=== PATIENT | male | born 1985 | race Caucasian/White ===

== ENCOUNTER 2022-03-20 14:16 | Outpatient (REF) | payer MEDICAID, SELFPAY ==
[2022-03-22 10:22] LABS: COVID-19 RT-PCR UVMMC Result Negative (Negative)
== END 2022-03-20 14:17 | disposition home or self-care (01) ==
LOC: LBN 14:16
PROVIDERS: Visit Provider Physician Assistant Medical
DX: Z20.822 Contact with and (suspected) exposure to COVID-19 (principal)
CPT/HCPCS: U0003

== ENCOUNTER 2022-08-23 08:24 | Emergency (ER) | payer MEDICAID, SELFPAY ==
[2022-08-23 08:29] VITALS: BP 156/109; PULSE 84; RESP 18; TEMP 36.7; O2SAT 98
--- NOTE | 2022-08-23 08:44 | ED.GENADUL_ITS ---
Discharge Plan Disposition Patient Disposition: Home Discharge Details Clinical Impression: Acute dehydration, Gastroenteritis Primary Care Provider: Mateusz Potts ED Provider: Ganesh Phelan Home Meds and New Rx's Prescriptions: Continued gabapentin 100 mg capsule 100 mg PO DAILY Patient Comments: stopped taking omeprazole 20 mg tablet,delayed release (DR/EC) 20 mg PO DAILY sertraline 50 mg tablet 50 mg PO DAILY Patient Comments: not taking ascorbic acid (vitamin C) 1,000 mg capsule 1 g PO PRN cholecalciferol (vitamin D3) 1,250 mcg (50,000 unit) capsule 1,250 mcg PO QWEEK Discharge Instructions Instructions: Gastroenteritis (ED), Dehydration (ED) Additional Instructions: We will ask our care managers to refer you to general surgery as an outpatient for follow-up of your previous esophageal stricture. Home to rest today. Small, frequent sips of fluids to maintain hydration. You may use the provided ondansetron if needed for further nausea. Consider restarting your sertraline in conjunction with your prescriber. Resume normal routine and activities. May slowly advance a bland diet as tolerated today. Medical Decision Making This is a 37-year-old male with a history of GERD, esophageal strictures requiring dilatation, and longstanding anxiety and mild mood disorder. He presents with 2 days of nausea, vomiting, loose and watery stools. Denies any known suspicious food or ill contacts. He has not had blood in the emesis or stool. He admits to some anxiety regarding recurrent esophageal stricture. Patient slightly dehydrated in appearance, his exam is otherwise reassuring. Differential diagnosis includes gastroenteritis, dehydration, electrolyte abno rmalities. IV access established, patient given antiemetic, anxiolytic, fluids. He is referred for screening x-ray to rule out obstruction. Laboratories are reassuring. X-ray reveals stool in the right colon, no dilated bowel. Following medications and stool, the patient is improving. Able to tolerate liquids by mouth. [place] better and able to produce urine. Patient is improving. This most consistent with gastroenteritis. Given the history of esophageal stricture, I do feel is reasonable to place a referral to surgery as the patient states its been a couple of years since he was last seen and he questions whether the passage of solid foods has been more difficult. Lab Data Lab results reviewed: Yes I reviewed the patient's lab results. Labs: Laboratory Results - last 24 hr 08/23/22 08/23/22 08:50 08:50 WBC 8.94 RBC 4.49 Hgb 14.6 Hct 42.5 MCV 95 MCH 32.5 MCHC 34.4 RDW 12.7 Plt Count 223 MPV 8.9 Immature Gran % 0.2 Neutrophils % 70.8 Lymphocytes % 18.6 Monocytes % 8.4 Eosinophils % 1.7 Basophils % 0.3 Nucleated RBC % 0.0 Absolute Neutrophils 6.33 Absolute Lymphocytes 1.66 Absolute Monocytes 0.75 Absolute Eosinophils 0.15 Absolute Basophils 0.03 Sodium 143 Potassium 4.0 Chloride 106 Carbon Dioxide 29.4 Anion Gap 7.6 BUN 12 Creatinine 0.9 Est GFR (CKD-EPI 2020) 112.81 Glucose 111 H Calcium 8.8 Total Bilirubin 0.6 AST 21 ALT 33 Alkaline Phosphatase 56 Total Protein 7.0 Albumin 3.4 Lipase 40 HPI General Mode of arrival: ambulatory . Date/Time Provider Initiated Documentation: 08/23/22 08:27 . Limitations to Documentation: no limitations . Information obtained by: patient . History of Present Illness 37 year old M presents to the emergency department with the chief complaint of Nausea, vomiting, diarrhea for 2 days, described as mild and moderate, and is localized to the abdomen. Patient reports no radiation. Patient started experiencing this day(s) and it has been intermittent. No relieving factors improve symptom(s), Eating worsens symptoms . Patient notes loss of appetite and nausea/vomiting; denies syncope and weakness. Patient did receive the following treatments prior to arrival, none Related Data Home Medications Medication Instructions Recorded Confirmed ascorbic acid (vitamin C) 1,000 mg 1 g PO PRN 07/29/22 08/23/22 capsule cholecalciferol (vitamin D3) 1,250 1,250 mcg PO QWEEK 07/29/22 08/23/22 mcg (50,000 unit) capsule gabapentin 100 mg capsule 100 mg PO DAILY 07/29/22 omeprazole 20 mg tablet,delayed 20 mg PO DAILY 07/29/22 08/23/22 release sertraline 50 mg tablet 50 mg PO DAILY 07/29/22 Allergies Allergy/AdvReac Type Severity Reaction Status Date / Time Penicillins Allergy Unknown Unverified 08/23/22 08:32 General Stated Complaint: Nausea/Vomit/Diar LEXUS: 3 Review of Systems Narrative: Recently stopped taking sertraline. Had chills at home, no documented fever. No known sick contacts or suspicious food contacts. 8 systems reviewed and otherwise negative. Positive anxiety. PFSH All Active Problems (Updated 08/23/22 @ 10:24 by Ganesh Phelan MD) Acute dehydration (Acute) Gastroenteritis (Acute) Thyroid nodule (Acute) Neck pain (Acute) GERD (gastroesophageal reflux disease) (Chronic) Generalized pain (Acute) Digestive problems (Acute) Difficulty swallowing (Acute) Back pain (Acute) Medical History 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 Surgical History History of hand surgery Hx of esophagogastroduodenoscopy Family History Mother Alcohol use disorder Substance use disorder Sister Alcohol use disorder Substance use disorder Social History Smoking/Tobacco Use Status: Current every day Tobacco Type: e-cigarettes Tobacco: How many years used: 20 Quit status: considering quitting Second Hand Exposure: Yes Smoking risk assessment performed?: Yes Alcohol Intake: current Alcohol Intake frequency: a few times a week Alcohol type: hard liquor Drug use: Daily Substance use type: marijuana Caregiver/Support person: No Household members: none Communication Needs: None Do you need help understanding health information?: Never Pets and animals: No Do you think of yourself as: straight/heterosexual Current gender identity: male What is your relationship status?: How often do you talk on the phone with friends or family?: never How often do you get together with friends or relatives?: never How often do you attend amish or tenriism services?: decline to answer Do you belong to any clubs or organized social groups?: no Panel score (0-1 are the most socially isolated patients): 0 What type of physical activity do you participate in: none Frequency: does not exercise Carmen/Confucianist: No preference Special carmen needs: No Seatbelt use: always Helmet use: Yes Helmet use: always Drive intox or ride w/intox regional owner operator truck driver: No Do you feel safe at home: Yes Do you feel safe in your relationship?: Yes Exam Narrative Exam Narrative: GEN: awake, alert, oriented 3. Pleasant, well groomed, interactive. HEAD: Normocephalic, atraumatic ENT: Mucous membranes dry, oropharynx unremarkable, External ear exam unremarkable EYES: PERRL, EOMI NECK: Full ROM, no JOSETTE, no menigismus CHEST/RESP: Nontender, clear to auscultation bilateral, no wheeze/rhonchi/rales CARDIOVASCULAR: RRR, no murmur, rub jens. 2+ Rad pulse bilateral ABDOMEN: Soft, nontender, no mass. +Bowel sounds EXT: Full ROM, no edema, no rash Neuro: Grossly normal neurologic exam, conversant, interactive. Psych: Speech fluent, thoughts congruent, affect anxious Course Vital Signs Vital signs: Vital Signs Temperature 36.7 C 08/23/22 08:29 Pulse 84 08/23/22 08:29 Respiratory Rate 18 08/23/22 08:29 Blood Pressure 156/109 H 08/23/22 08:29 Pulse Oximetry 98 08/23/22 08:29 Temperature 36.7 C 08/23/22 08:29 Temperature Source Oral 08/23/22 08:29 Pulse 84 08/23/22 08:29 Respiratory Rate 18 08/23/22 08:29 Respiratory Effort Normal 08/23/22 08:33 Blood Pressure 156/109 H 08/23/22 08:29 Blood Pressure Position Sitting 08/23/22 08:29 Pulse Oximetry 98 08/23/22 08:29 Oxygen Delivery Method Room Air 08/23/22 08:29 Oxygen Flow Rate 0 08/23/22 08:29 Pain Level 0 08/23/22 08:29 PAWSS Have you Been Recently Intoxicated or Drunk Within the Last 30 days?: Yes Have you Ever Experienced Previous Episodes of Alcohol Withdrawal?: No Have you ever Experienced Withdrawal Seizures?: No Have you ever Experienced Delirium Tremens(DT)s?: No Have you ever undergone Alcohol Rehabilitation Treatment (i.e, inpt ot outpatient treatment programs)?: No Have you ever Experienced Blackouts?: Yes Have you ever Combined Alcohol with other Downers within the last 90 days?: Yes Have you ever Combined Alcohol with any other Substance of Abuse during the last 90 days?: No Positive Blood Alcohol level on Presentation? [PCS.BAL]: No Evidence of Increased Autonomic Activity (i.e. HR>120, tremor, sweating, agitation, nausea)?: No Result: 2
[2022-08-23 09:00] LABS: Abs Immature Grans 0.02 10^3/uL (0.0-0.06); Absolute Basophil Count 0.03 10^3/uL (0.0-0.2); Absolute Eosinophil Count 0.15 10^3/uL (0.0-0.7); Absolute Lymphocyte Count 1.66 10^3/uL (1.2-3.4); Absolute Monocyte Count 0.75 10^3/uL (0.1-0.8); Absolute Neutrophil Count 6.33 10^3/uL (1.2-6.7); Basophils % 0.3; Eosinophils % 1.7; HCT 42.5 % (40.0-50.0); HGB 14.6 g/dL (13.5-17.5); Immature Grans % 0.2; Lymphocytes % 18.6; MCH 32.5 pg (27.0-33.0); MCHC 34.4 % (32.0-36.0); MCV 95 fL (80-95); MPV 8.9 fL (8.0-11.0); Monocytes % 8.4; Neutrophils % 70.8; Platelet Count 223 10^3/uL (130-400); RBC 4.49 10^6/uL (4.36-5.78); RDW 12.7 % (11.8-14.1); RDW-SD 43.9 fL; WBC 8.94 10^3/uL (4.4-10.8)
[2022-08-23] MEDS: Ondansetron 4 MG/2 ML VIAL IVP (09:04)
[2022-08-23] MEDS: LORazepam 2 MG/ML VIAL 0.5 MG IVP (09:05)
[2022-08-23] MEDS: Normal Saline 1,000 ML 1000 ML IV (09:06)
--- NOTE | 2022-08-23 09:07 | DI.RAD_ITS ---
Exam(s) XR ABDOMEN FLAT UPRIGHT EXAM: 2D digital imaging was performed. CLINICAL HISTORY: vomiting, diarrhea. COMPARISON: No exams were available for comparison TECHNIQUE: Supine and uprightSupine and Lateral views of the abdomen were performed. FINDINGS: BOWEL GAS PATTERN: Stool in right side of the colon and rectum. Small bowel and stomach nondistended .No free air. CALCIFICATIONS: No urinary tract calcifications. OSSEOUS STRUCTURES: Normal for age. Visualized portions of chest: Unremarkable. IMPRESSION: 1. Nonobstructive bowel gas pattern. 2. No radiopaque calculi. 3. No free air. DATA REPOSITORY: RADIATION DOSE DELIVERED:
[2022-08-23 09:14] LABS: ALT 33 U/L (16-63); AST 21 U/L (15-37); Albumin 3.4 g/dL (3.4-5.0); Alkaline Phosphatase 56 U/L (46-116); Anion Gap 7.6 mmol/L (3-11); BUN 12 mg/dL (7-18); Bilirubin, Total 0.6 mg/dL (0.2-1.0); CO2 29.4 mmol/L (21.0-32.0); CREATININE 0.9 mg/dL (0.70-1.30); Calcium 8.8 mg/dL (8.5-10.1); Chloride 106 mmol/L (98-107); Estimated GFR 112.81 (mL/min/1.73m2); Glucose 111 mg/dL (74-106); Lipase 40 U/L (16-77); Sodium 143 mmol/L (136-145)
--- NOTE | 2022-08-23 09:38 | DI.VRAD_ITS ---
PROCEDURE INFORMATION: Exam: XR Abdomen Exam date and time: 08/23/2022 9:19 AM Age: 37 years old Clinical indication: Other: Vomitting, diarrhea TECHNIQUE: Imaging protocol: Radiologic exam of the abdomen. Views: 2 Views. Upright and supine views. COMPARISON: No relevant prior studies available. FINDINGS: Gastrointestinal tract: Constipation in the right colon. No dilated bowel.. Intraperitoneal space: Normal. No free air. Bones/joints: Unremarkable for age. IMPRESSION: 1. Constipation in the right colon. 2. No dilated bowel.. Dictated and Authenticated by: Charity Campbell MD. Ordering:BLAKE Andersen MD
--- NOTE | 2022-08-23 10:33 | NUR.NOTE ---
Per Dr. Phelan, referral to Surgery for esophageal stricture as soon as avail. Put the referral in the care manger's box for follow up assistance.Nursing Note:
[2022-08-23 10:50] LABS: Bilirubin Negative (Negative); Blood Negative (Negative); Clarity Cloudy (Clear); Glucose Negative (Negative); Ketones Negative (Negative); Leukocyte Esterase Negative (Negative); Nitrite Negative (Negative); Urobilinogen 0.2 mg/dL (Up to 0.2); pH 8.5 (5-8)
[2022-08-23 11:05] VITALS: BP 147/94; PULSE 85; RESP 18; TEMP 36.6; O2SAT 97
== END 2022-08-23 11:19 | disposition home or self-care (01) ==
PROVIDERS: Emergency Provider Emergency Medicine; PCP Nurse Practitioner Family
DX: K52.9 Noninfective gastroenteritis and colitis, unspecified (principal); E86.0 Dehydration
CPT/HCPCS: 80053; 83690; 96361; 96374; 96375; 99284; 74019; 81003; 85025; J2060; J2405

== ENCOUNTER 2022-08-26 10:39 | Day surgery (SDC) | payer MEDICAID, SELFPAY ==
--- NOTE | 2022-08-26 06:42 | ENDO_ITS ---
Date of service: 08/26/22 Time of Service: 12:37 Endoscopy Report DATE OF PROCEDURE: 08/26/22 PRE-OP DIAGNOSIS: Dysphagia and Hx of Hoang's POST-OP DIAGNOSIS: same (esophagitis and scarring) PROCEDURE: EGD with biopsies Balloon dilatation of esophageal stricture SURGEON: Sheila Velez ANESTHESIA TYPE: MAC ESTIMATED BLOOD LOSS: 5 PATHOLOGY: other (bx of GE junction and stomach) COMPLICATIONS: None DISPOSITION: same day INDICATIONS: 37-year-old male with a history of dysphagia, gastroesophageal reflux disease and Hoang's esophagitis.? His last EGD was in October 2020.? He feels like food is getting stuck again and sometimes he has to throw up.? He denies any hematemesis or weight loss.? The EGD procedure with biopsies were gross reviewed with him as well as balloon dilation if needed.? Risks, benefits and compl ications have been reviewed. Complications include but are not limited to bleeding, pain, perforation, sore throat, aspiration, and adverse reaction to the medications.? Questions were entertained and answered to their satisfaction and they wished to proceed. No guarantees were given or implied. FINDINGS: severe inflammation and narrowing of the esophagus. PROCEDURE DESCRIPTION: After informed consent was obtained the patient was take to the procedure room and placed in a supine position. Monitors were applied and a time out was done. The patients name, date of , procedure type, allergies to medications and metal in their body was reviewed. A bite block was placed and the patient was sedated. Once sedated and comfortable the gastroscope was advanced through the oropharynx which was grossly normal into the esophagus. The proximal and mid- esophagus were normal. In the distal esophagus there was severe inflammation and scarring. I was able to gently get the scope to get past the scarring into the stomach. The scope was advanced into the stomach and through the pylorus into the 3rd portion of the duodenum. The duodenum was noted to be normal. The scope was retracted back into the stomach and biopsies were done to rule out H. pylori. There were no ulcers. The scope was retroflexed. The cardia and fundus were noted to be normal. There was a 3-4 cm hiatal hernia noted. The scope was retracted back into the esophagus and biopsies were done of the GE junction to rule out Hoang's. The Z line was irregular. The GE junction was at 32 cm. I attempted to dilate the GE junction, but the patient started to cough pretty violently so the procedure was stopped. The scope was removed and the patient was woken up and taken back to [facility] in stable condition. Follow up: 2 week in the office. Will probably need another EGD in 3 months
--- NOTE | 2022-08-26 06:43 | W.PM.DSUDISC ---
Date of service: 08/26/22 Time of Service: 12:34 Discharge Plan Disposition Patient Disposition: Home Condition: Stable Discharge Details Reason For Visit: Dysphagia and Hoang's Attending Provider: Sheila Velez Primary Care Provider: Mateusz Potts Home Meds and New Rx's Prescriptions: New omeprazole 40 mg capsule,delayed release(DR/EC) 40 mg PO BID Qty: 60 2RF Continued ascorbic acid (vitamin C) 1,000 mg capsule 1 g PO PRN cholecalciferol (vitamin D3) 1,250 mcg (50,000 unit) capsule 1,250 mcg PO QWEEK Discontinued omeprazole 40 mg capsule,delayed release(DR/EC) 40 mg PO DAILY Qty: 90 0RF Discharge Instructions Instructions: Diet for Stomach Ulcers and Gastritis (ED), GERD (Gastroesophageal Reflux Disease) (DC), Esophagitis (DC) Additional Instructions: Findings: 1. mild inflammation in the stomach 2. Severe inflammation in the esophagus with scarring 3. Small Hiatal hernia Follow up: 2 weeks Medications: Please increase the Omeprazole to 40 mg 2 x a day. A new Rx has been sent in Please call if you develop: fevers >101.5 Nausea or Vomiting Abdominal pain that is not transient Rectal bleeding that is more then a tbsp A hard abdomen and inability to pass gas DAY SURGERY UNIT POST ENDOSCOPY INSTRUCTIONS Instructions for everyone who is given Anesthesia: For your safety, please do the following for the next 24 Hours: a. Do not drive or operate dangerous equipment b. Do not drink alcohol beverages or use any recreational drugs for the first 24 hours or while taking pain medications. The medications in your body may have a reaction that can be dangerous. c. Do not make any important decisions or sign any important papers 1. Generally there are no restrictions on your activity after a day or so has gone by, but you may feel a bit fatigued for a few days. 2. After you arrive home you may have a light meal and return to a normal diet as you can tolerate it without feeling sick to your stomach. 3. After surgery, you may feel pain or discomfort. This should be only transient, but if it persists please contact your doctor. 4. If there are any questions regarding the findings of your procedure, please feel free to contact your doctor. 6. If you are unable to contact your doctor with a problem, contact the hospital at [phone]. 4. Continue all your regular medications unless directed otherwise. I understand the above instructions and have no questions. Signature of Patient or Responsible Adult Escort Date/Time Name of Responsible Adult Escort Signature of Nurse Date/Time Activity:: Activity as Tolerated Diet:: low acid Discharge Orders Discharge Orders: Discharge Order (Routine); Ordered 08/26/22 Ordered By: Sheila Velez DS: Diagnosis Discharge Diagnosis (1) Hoang's esophagus determined by endoscopy: Status: Acute (2) GERD (gastroesophageal reflux disease): Status: Chronic (3) Hiatal hernia: Status: Chronic
[2022-08-26 11:01] VITALS: BP 124/89; PULSE 73; RESP 16; TEMP 36.3; O2SAT 97
[2022-08-26] MEDS: Lactated Ringers 1,000 ML 80 ML IV (11:28)
--- NOTE | 2022-08-26 12:20 | STOM_PTH ---
PATIENT: Neto Gallegos LOC: [facility] U#:[id number] AGE/SX: 37/M ROOM: RE08/26/[address]: Sheila Velez MD : 1985 BED: DIS: 08/26/2022 SPEC #: [id number] RECD: 08/26/22 17:31 STATUS: MARILEE REQ #: [id number] KYLER: 08/26/22 12:[address]: Sheila Velez DEPT: Surgical Specimen RECD BY: Tram Allen ENTERED: 08/26/22 17:32 SP TYPE: STOMACH OTHR DR: Mateusz Encinas, MARLENI Tissues: 1 - STOMACH BIOPSY 2 - ESOPHAGUS BIOPSY Procedures: GROSS AND MICRO LEVEL 4 Comments: [id number]
[2022-08-26 12:38] VITALS: BP 131/87; PULSE 80; RESP 16; TEMP 36.6; O2SAT 94
--- NOTE | 2022-08-26 12:44 | ANES.PREOP_ITS ---
General Info Date of Service Date Performed: 08/26/22 Height: 5 ft 7 in Weight: 84 kg Body Mass Index (BMI): 29.0 Surgical Procedure: Operation Date: 08/26/22 12:05 Proposed Procedure Side Surgeon p Gastroscopy with Possible Dilation Sheila Velez MD Actual Procedure Side Surgeon p EGD WITH BIOPSIES Not Applicable Sheila Velez MD Pre-Op Diagnosis Post-Op Diagnosis DIFFICULTY SWALLOWING GASTRITIS AND SEVERE ESOPHAGITIS WITH SCRITCTURE Meds Allergies and Home Medications Allergies Allergy/AdvReac Type Severity Reaction Status Date / Time Penicillins Allergy Severe Anaphylaxis Unverified 08/25/22 15:45 Home Medication Medication Instructions Recorded ascorbic acid (vitamin C) 1,000 mg 1 g PO PRN 07/29/22 capsule cholecalciferol (vitamin D3) 1,250 1,250 mcg PO QWEEK 07/29/22 mcg (50,000 unit) capsule omeprazole 40 mg capsule,delayed 40 mg PO BID #60 caps 08/26/22 release Current Visit Medications: Current Medications Generic Name Dose Route Start Last Admin Trade Name Freq PRN Reason Stop Dose Admin Hyoscyamine Sulfate 0.125 mg 08/26/22 06:44 Hyoscyamine 0.125 Mg Sl/Oral/Chew SL DIRECTED PRN Ringer's Solution 1,000 mls @ 80 mls/hr 08/26/22 06:00 08/26/22 12:33 IV 09/24/22 23:59 80 mls/hr INFUSION JACLYN Infusion IV Miscellaneous Supplies 1 each 08/26/22 06:00 Iv Access IV 09/24/22 23:59 DIRECTED JACLYN Ondansetron HCl 4 mg 08/26/22 06:44 Ondansetron 4 Mg/2 Ml Vial IVP Q4H PRN PRN Nausea / Vomiting Sodium Chloride 0 ml 08/26/22 06:00 Normal Saline Flush 10 Ml Syr IV 09/24/22 23:59 PRN PRN Sodium Chloride 0 ml 08/26/22 06:00 Normal Saline 10 Ml Vial IJ 09/24/22 23:59 DIRECTED PRN Sterile Water 0 ml 08/26/22 06:00 Water,Injection,Sterile 10 Ml Vial IJ 09/24/22 23:59 DIRECTED PRN PFSH Active Problems Active Problems: Problem Status Onset Code Hiatal hernia K44.9 Hoang's esophagus determined by endoscopy K22.70 Acute dehydration E86.0 Gastroenteritis K52.9 Thyroid nodule E04.1 Neck pain M54.2 GERD (gastroesophageal reflux disease) K21.9 Generalized pain R52 Digestive problems K92.9 Difficulty swallowing R13.10 Back pain M54.9 Medical History Medical History 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 Medical History Comments:: 08/26/22 - last Vaped 08/25/22 Surgical History Surgical History History of hand surgery Hx of esophagogastroduodenoscopy Tobacco Smoking/Tobacco Use Status: Current every day Tobacco Type: e-cigarettes Second hand exposure: Yes Alcohol Alcohol Intake: current Alcohol intake frequency: a few times a week Alcohol type: hard liquor Substance Use Substance use: Daily Substance use type: marijuana Details: 08/26/22 smoked marijuana 08/25/22 Vital Signs and Lab Results Vital Signs Most Recent Vital Signs in EMR: Most Recent Vital Signs Temp Pulse Resp BP Pulse Ox 36.6 C 80 16 131/87 94 08/26/22 12:38 08/26/22 12:38 08/26/22 12:38 08/26/22 12:38 08/26/22 12:38 Lab Results Blood Type / Crossmatch: No Data to Display Complete Blood Count: White Blood Count 8.94 10^3/uL (4.4-10.8) 08/23/22 08:50 Red Blood Count 4.49 10^6/uL (4.36-5.78) 08/23/22 08:50 Hemoglobin 14.6 g/dL (13.5-17.5) 08/23/22 08:50 Hematocrit 42.5 % (40.0-50.0) 08/23/22 08:50 Platelet Count 223 10^3/uL (130-400) 08/23/22 08:50 Complete Metabolic Panel: Sodium 143 mmol/L (136-145) 08/23/22 08:50 Potassium 4.0 mmol/L (3.5-5.1) 08/23/22 08:50 Chloride 106 mmol/L (98-107) 08/23/22 08:50 Carbon Dioxide 29.4 mmol/L (21.0-32.0) 08/23/22 08:50 BUN 12 mg/dL (7-18) 08/23/22 08:50 Creatinine 0.9 mg/dL (0.70-1.30) 08/23/22 08:50 Est GFR (CKD-EPI 2020) 112.81 (mL/min/1.73m2) 08/23/22 08:50 Calcium 8.8 mg/dL (8.5-10.1) 08/23/22 08:50 Albumin 3.4 g/dL (3.4-5.0) 08/23/22 08:50 Glucose 111 mg/dL (74-106) H 08/23/22 08:50 Liver Function Panel: Alanine Aminotransferase (ALT/SGPT) 33 U/L (16-63) 08/23/22 08: 50 Aspartate Amino Transf (AST/SGOT) 21 U/L (15-37) 08/23/22 08:50 Coagulation Panel: No Data to Display Cardiac Panel: No Data to Display Arterial Blood Gas: No Data to Display Venous Blood Gas: No Data to Display Pancreas Panel: Lipase 40 U/L (16-77) 08/23/22 08:50 Thyroid Panel: No Data to Display Infectious Disease: No Data to Display Blood Cultures: No Data to Display Toxicology Panel: No Data to Display Anesthesia Assessment and Plan Anesthesia History Personal History: No History of Anesthesia Complications Family History: No Family History of Anesthesia Complications Exercise Tolerance Exercise Tolerance: Metabolic Equivalents>4 Pertinent Negatives Pertinent Negatives: No Major Cardiovascular Symptoms or Complaints, No Major Pulmonary Symptoms or Complaints and No History of CVA/TIA Cardiac & Pulmonary Exam Cardiac Exam: Normal S1/S2 Heart Sounds Pulmonary Exam: Clear Bilateral Breath Sounds Implantable Cardiac Device Does patient have a Pacemaker or an ICD?: No Airway Exam Known Difficult Airway: No Mallampati Class: 2 Mouth Opening: Normal (> 3cm) Thyromental Distance: Greater than 3 cm Neck Range of Motion: Full ROM Neck Circumference: Normal Teeth Condition: Normal Dentition ASA Classification ASA Score: ASA 2 Emergency Case?: No NPO Status NPO Status: NPO Clears >2 hours, Solids >8 hours Anesthesia Plan Resuscitation Status: Full Code Anesthesia Technique: General Anesthesia Airway Planned: Natural Airway Monitors Used: Standard Monitors
[2022-08-26 12:45] VITALS: BMI 29.0
--- NOTE | 2022-08-26 12:45 | W.ANESPOSTOP ---
Postoperative Evaluation Date, Time and Location Date Performed: 08/26/22 Time Performed: 12:38 Patient Location: Day Surgery Unit Vital Signs Most Recent Imported Vital Signs: Most Recent Vital Signs Temp Pulse Resp BP Pulse Ox 36.6 C 80 16 131/87 94 08/26/22 12:38 08/26/22 12:38 08/26/22 12:38 08/26/22 12:38 08/26/22 12:38 Pain Score Most Recent Pain Score: Most Recent Pain Score Pain Level 0 08/26/22 12:38 Assessment Mental Status: Awake (Alert & Oriented to Patient Baseline) Airway and Respiratory Function: Patent airway with normal (patient baseline) respiratory exam Cardiovascular Function: Hemodynamically Stable Hydration Status: Adequately Hydrated Nausea & Vomiting: No Nausea or Vomiting Pain: Pt. Denies Any Pain Peripheral Nerve Block: Patient did not receive a nerve block Postoperative Comments:: Discussed pinch to upper right lip from suctioning. Patient frequent marijuana usage, however, did not disclose prior to anesthetic. Discussed importance to relay that information to his anesthesia provider in the future.
[2022-08-26 13:08] VITALS: BP 142/90; PULSE 63; RESP 16; TEMP 36.5; O2SAT 97
== END 2022-08-26 13:35 | disposition home or self-care (01) ==
PROVIDERS: PCP Nurse Practitioner Family; Visit Provider Surgery
PROC: 0D758ZZ Dilation of Esophagus, Via Natural or Artificial Opening Endoscopic (ICD-10-PCS; CPT 43249; principal; 2022-08-26 12:00)
DX: K22.2 Esophageal obstruction (principal); K44.9 Diaphragmatic hernia without obstruction or gangrene; K21.9 Gastro-esophageal reflux disease without esophagitis; Z53.09 Procedure and treatment not carried out because of other contraindication; R05.8 Other specified cough
CPT/HCPCS: 43249; 43239; 88305; J2704

== ENCOUNTER 2022-09-01 14:34 | Outpatient (REF) | payer MEDICAID, SELFPAY ==
[2022-09-30 10:30] LABS: Fungus Smear No Fungi Seen
== END 2022-09-01 14:35 | disposition home or self-care (01) ==
LOC: LBN 14:34
PROVIDERS: PCP Nurse Practitioner Family; Visit Provider Nurse Practitioner Family
DX: L60.8 Other nail disorders (principal)
CPT/HCPCS: 87101; 87206

== ENCOUNTER 2022-10-05 15:30 | Outpatient (CLI) | payer MEDICAID, SELFPAY ==
--- NOTE | 2022-10-05 15:23 | DI.RAD_ITS ---
Exam(s) XR ACROMIO CLAVICULAR JOINTS XR CLAVICLE RT EXAM: XR ACROMIO CLAVICULAR JOINTS INDICATION: right AC pain,shoulder pain,m25.519. COMPARISON: CR XR CLAVICLE RT from 10/05/2022 TECHNIQUE: 2D digital imaging was performed. Views of both clavicles were performed without and wit h weights. Two views of the right clavicle were performed. FINDINGS: There is no evidence of widening of the right SI joint without or with weights. There is no evidenc e of fracture. The glenohumeral joint is unremarkable. There has been previous surgery to the dista l left clavicle. IMPRESSION: No acute abnormality. DATA REPOSITORY: RADIATION DOSE DELIVERED:
== END 2022-10-05 15:50 ==
PROVIDERS: PCP Nurse Practitioner Family; Visit Provider Physician Assistant
DX: M25.511 Pain in right shoulder (principal)
CPT/HCPCS: 73000; 73050

== ENCOUNTER 2022-11-04 06:14 | Day surgery (SDC) | payer MEDICAID, SELFPAY ==
--- NOTE | 2022-10-14 06:48 | ENDO_ITS ---
Date of service: 10/14/22 Endoscopy Report DATE OF PROCEDURE: 10/14/22 PRE-OP DIAGNOSIS: dysphagia PROCEDURE: EGD with biopsies and balloon dilatation SURGEON: Sheila Velez ANESTHESIA TYPE: General:No Airway COMPLICATIONS: None DISPOSITION: same day INDICATIONS: Neto is a pleasant 37-year-old gentleman who has had longstanding reflux esophagitis.? I saw him back in August for worsening dysphagia.? He underwent an esophagoscopy with dilation.? He felt fine afterwards and was not having any troubles swallowing.? He comes in now with a weeks worth of dysphagia again.? We discussed doing another upper endoscopy with balloon dilation.? He may need a few of these about a month apart in order to keep the area from closing up again.? He has no heartburn or reflux type symptoms.? Risks, benefits and complications have been reviewed. Complications include but are not limited to bleeding, pain, perforation, sore throat, aspiration, and adverse reaction to the medications.? Questions were entertained and answered to their satisfaction. He seemed to understand the complications and they wished to proceed. No g uarantees were given or implied. PROCEDURE DESCRIPTION: After informed consent was obtained the patient was take to the procedure room and placed in a supine position. Monitors were applied and a time out was done. The patients name, date of , procedure type, allergies to medications and metal in their body was reviewed. A bite block was placed and the patient was sedated. Once sedated and comfortable the gastroscope was advanced through the oropharynx which was grossly normal into the esophagus. The proximal and mid- esophagus were []. In the distal esophagus there was [] noted. The scope was advanced into the stomach and through the pylorus into the 3rd portion of the duodenum. The duodenum was noted to be []. Biopsies were done []. The scope was retracted back into the stomach and biopsies were done to rule out H. pylori. There were [] ulcers. The scope was retroflexed. The cardia and fundus were noted to be normal. There [] a hiatal hernia noted. The scope was retracted back into the esophagus and biopsies were done of the GE junction to rule out Hoang's. The Z line was regular. The GE junction was at [] cm. The scope was removed and the patient was woken up and taken back to [facility] in stable condition. Follow up:
--- NOTE | 2022-10-14 06:48 | W.PM.PROGNOT ---
Date of Service Date of service: 10/14/22 Assessment and Plan Assessment and plan (1) Difficulty swallowing: Status: Acute (2) Esophagitis determined by biopsy: Status: Acute
--- NOTE | 2022-10-14 06:49 | W.PM.DSUDISC ---
Date of service: 10/14/22 Discharge Plan Disposition Patient Disposition: Home Condition: Stable Discharge Details Reason For Visit: dysphagia Attending Provider: Sheila Velez Primary Care Provider: Mateusz Potts Home Meds and New Rx's Prescriptions: No Action cyclobenzaprine 10 mg tablet 10 mg PO HS PRN (Reason: muscle spasm) Qty: 5 0RF escitalopram oxalate 20 mg tablet 20 mg PO DAILY Qty: 90 0RF Rx Instructions: take 0.5 tab po qd x 1 week, then increase to 20 mg po qd ascorbic acid (vitamin C) 1,000 mg capsule 1 g PO PRN cholecalciferol (vitamin D3) 1,250 mcg (50,000 unit) capsule 1,250 mcg PO QWEEK omeprazole 40 mg capsule,delayed release(DR/EC) 40 mg PO BID Qty: 60 2RF Discharge Instructions Additional Instructions: Findings: Follow up: Please call if you develop: fevers >101.5 Nausea or Vomiting Abdominal pain that is not transient Rectal bleeding that is more then a tbsp A hard abdomen and inability to pass gas DAY SURGERY UNIT POST ENDOSCOPY INSTRUCTIONS Instructions for everyone who is given Anesthesia: For your safety, please do the following for the next 24 Hours: a. Do not drive or operate dangerous equipment b. Do not drink alcohol beverages or use any recreational drugs for the first 24 hours or while taking pain medications. The medications in your body may have a reaction that can be dangerous. c. Do not make any important decisions or sign any important papers 1. Generally there are no restrictions on your activity after a day or so has gone by, but you may feel a bit fatigued for a few days. 2. After you arrive home you may have a light meal and return to a normal diet as you can tolerate it without feeling sick to your stomach. 3. After surgery, you may feel pain or discomfort. This should be only transient, but if it persists please contact your doctor. 4. If there are any questions regarding the findings of your procedure, please feel free to contact your doctor. 6. If you are unable to contact your doctor with a problem, contact the hospital at [phone]. 7. Continue all your regular medications unless directed otherwise. I understand the above instructions and have no questions. Signature of Patient or Responsible Adult Escort Date/Time Name of Responsible Adult Escort Signature of Nurse Date/Time Activity:: Activity as Tolerated Diet:: As Tolerated DS: Diagnosis Discharge Diagnosis (1) Difficulty swallowing: Status: Acute (2) Esophagitis determined by biopsy: Status: Acute
[2022-11-04 06:25] VITALS: BP 131/99; PULSE 64; RESP 16; TEMP 36.2; O2SAT 97
[2022-11-04] MEDS: Lactated Ringers 1,000 ML 80 ML IV (06:40)
--- NOTE | 2022-11-04 06:41 | PGE_ITS ---
Date of Service Date of service: 11/04/22 Time of Service: 06:41 Assessment and Plan Assessment and plan (1) GERD (gastroesophageal reflux disease): Status: Chronic Assessment and plan: Neto is a pleasant 37-year-old gentleman who has had longstanding reflux esophagitis.? I saw him back in August for worsening dysphagia.? He underwent an esophagoscopy with dilation.? He felt fine afterwards and was not having any troubles swallowing.? He comes in now with a weeks worth of dysphagia again.? We discussed doing another upper endoscopy with balloon dilation.? He may need a few of these about a month apart in order to keep the area from closing up again.? He has no heartburn or reflux type symptoms.? Risks, benefits and complications have been reviewed again today in SDS. Complications include but are not limited to bleeding, pain, perforation, sore throat, aspiration, and adverse reaction to the medications.? Questions were entertained and answered to their satisfaction. He seemed to understand the complications and they wished to proceed. No guarantees were given or implied. Proceed with EGD with dilatation (2) Hoang's esophagus determined by endoscopy: Status: Acute (3) Hiatal hernia: Status: Chronic Subjective Subjective Interval history since last seen: I saw Neto in same-day surgery today. There have not been any changes in his symptoms since I saw him in the office. He continues to have dysphagia with some foods and with his pills. We reviewed the procedure again as well as the risks, benefits and complications. Neto is comfortable proceeding with the procedure and has no other questions. Exam Const General: comfortable and no acute distress Nutritional Appearance: average body habitus Orientation: alert and oriented x3 [facility] Head: normocephalic and atraumatic Resp Effort & Inspection: normal respiratory effort GI Inspection: normal to inspection Objective Last Vital Signs Temp 97.2 F L 11/04/22 06:25 Pulse 64 11/04/22 06:25 Resp 16 11/04/22 06:25 BP 131/99 H 11/04/22 06:25 Pulse Ox 97 11/04/22 06:25 Time Spent with Patient Time Spent with Patient: <25 minutes Time was spent: obtaining and/or reviewing separately otained hiistory and counseling the patient
--- NOTE | 2022-11-04 06:46 | ENDO_ITS ---
Date of service: 11/04/22 Time of Service: 07:46 Endoscopy Report DATE OF PROCEDURE: 11/04/22 PRE-OP DIAGNOSIS: dysphagia, hx of GERD POST-OP DIAGNOSIS: same (enlarged tonsils, severe narrowing of the GE junction) PROCEDURE: EGD with dilatation and biopsies SURGEON: Sheila Velez ANESTHESIA TYPE: General LMA/ETT ESTIMATED BLOOD LOSS: 3 PATHOLOGY: other (Bx of GE junction) COMPLICATIONS: None DISPOSITION: same day INDICATIONS: Neto is a pleasant 37-year-old gentleman who has had longstanding reflux esophagitis.? I saw him back in August for worsening dysphagia.? He underwent an esophagoscopy with dilation.? He felt fine afterwards and was not having any troubles swallowing.? He comes in now with a weeks worth of dysphagia again.? We discussed doing another upper endoscopy with balloon dilation.? He may need a few of these about a month apart in order to keep the area from closing up again.? He has no heartburn or reflux type symptoms.? Risks, benefits and complications have been reviewed. Complications include but are not limited to bleeding, pain, perforation, sore throat, aspiration, and adverse reaction to the medications.? Questions were entertained and answered to their satisfaction. He seemed to understand the complications and they wished to proceed. No guarantees were given or implied. FINDINGS: Inflammation of the GE junction with severe narrowing. possible tonsile stone PROCEDURE DESCRIPTION: After informed consent was obtained the patient was take to the operating room and placed in a supine position. Monitors were applied and a time out was done. The patients name, date of , procedure type, allergies to medications and metal in their body was reviewed. A bite block was placed and the patient was sedated. Once sedated and comfortable the gastroscope was advanced through the oropharynx into the esophagus. Tonsil was enlarged on the right side and looked enlarged and there was a white strip on it. The proximal and mid-esophagus were normal. In the distal esophagus there was severe inflammation noted. There was also severe narrowing again. I was unable to pass the scope. The GE junction was dilated with a balloon to 20 mm. The scope was then able to pass the GE junction into the stomach. The scope was retracted back into the esophagus and biopsies were done of the GE junction to rule out dysplacia. Patient has known Hoang's. The scope was removed and the patient was woken up and taken back to [facility] in stable condition. Follow up: 1 month for EGD and dilatation
--- NOTE | 2022-11-04 06:48 | PDOC.DSDIS_ITS ---
Date of service: 11/04/22 Time of Service: 07:56 Discharge Plan Disposition Patient Disposition: Home Condition: Stable Discharge Details Reason For Visit: dysphagia Attending Provider: Sheila Velez Primary Care Provider: Mateusz Potts Home Meds and New Rx's Prescriptions: New sucralfate [Carafate] 1 gram tablet 1 g PO QAC 14 Days Qty: 42 0RF Continued escitalopram oxalate 20 mg tablet 20 mg PO DAILY Qty: 90 3RF Rx Instructions: take 0.5 tab po qd x 1 week, then increase to 20 mg po qd bupropion HCl 100 mg tablet 100 mg PO TID Qty: 90 0RF Rx Instructions: administer 6 hours apart. 100 mg po qd x 1 week, then 100 mg BID x 1 week, then 100 mg TID omeprazole 40 mg capsule,delayed release(DR/EC) 40 mg PO QAM Qty: 90 3RF famotidine 40 mg tablet 40 mg PO QHS Qty: 30 0RF Discharge Instructions Instructions: GI (Gastrointestinal) Soft Diet (DC), Diet for Stomach Ulcers and Gastritis (GEN) Additional Instructions: Findings: Severe inflammation of the junction of the esophagus and stomach Area dilated and biopsies done ? tonsilar stone (this is benign). Referals: Dr. Felix for the possible Tonsillar stone Follow up: 2 weeks Medication: add Carafate 30 minutes before meals Please call if you develop: fevers >101.5 Nausea or Vomiting Abdominal pain that is not transient Rectal bleeding that is more then a tbsp A hard abdomen and inability to pass gas DAY SURGERY UNIT POST ENDOSCOPY INSTRUCTIONS Instructions for everyone who is given Anesthesia: For your safety, please do the following for the next 24 Hours: a. Do not drive or operate dangerous equipment b. Do not drink alcohol beverages or use any recreational drugs for the first 24 hours or while taking pain medications. The medications in your body may have a reaction that can be dangerous. c. Do not make any important decisions or sign any important papers 1. Generally there are no restrictions on your activity after a day or so has gone by, but you may feel a bit fatigued for a few days. 2. After you arrive home you may have a light meal and return to a normal diet as you can tolerate it without feeling sick to your stomach. 3. After surgery, you may feel pain or discomfort. This should be only transient, but if it persists please contact your doctor. 4. If there are any questions regarding the findings of your procedure, please f eel free to contact your doctor. 6. If you are unable to contact your doctor with a problem, contact the hospital at [phone]. 7. Continue all your regular medications unless directed otherwise. I understand the above instructions and have no questions. Signature of Patient or Responsible Adult Escort Date/Time Name of Responsible Adult Escort Signature of Nurse Date/Time Referrals: Sheila Velez MD [ [facility] STAFF PHYSICIAN] - 11/17/22 9:15 am Activity:: Activity as Tolerated Diet:: soft Discharge Orders Discharge Orders: Discharge Order (Routine); Ordered 11/04/22 Ordered By: Sheila Velez DS: Diagnosis Discharge Diagnosis (1) Difficulty swallowing: Status: Acute Asessment and Plan: Patient is seen and examined after their endoscopy. Patient has minimal sore throat. They have been able to tolerate liquids. They do not have any Nausea or Vomiting. They are not having any chest pain or shortness of breath. They have been able to pass gas and are not having any abdominal pain or distention. they have not vomited any blood. The vital signs have been stable-see nursing notes. We discussed findings on their endoscopy I will send a referal to Dr. Felix for the possible tonsillar stone. Patient has no history of it. We reviewed the importance of lifestyle modifications- see diet recommendations I discussed Vaping cessation. We reviewed any new medications that the patient may be prescribed- see medicine reconciliation. Patient will either be sent a letter with the biopsy results or follow up in the office- see discharge instructions Patient was given explicit instructions for emergency follow up post endoscopy- see discharge instructions Patient verbalized understanding and was discharged in stable and satisfactory condition. See nursing notes. (2) GERD (gastroesophageal reflux disease): Status: Chronic (3) Hoang's esophagus determined by endoscopy: Status: Acute (4) Hiatal hernia: Status: Chronic
--- NOTE | 2022-11-04 07:12 | W.ANESPRE ---
General Info Date of Service Date Performed: 11/04/22 Height: 5 ft 7 in Weight: 83.3 kg Body Mass Index (BMI): 28.8 Surgical Procedure: Operation Date: 11/04/22 07:35 Proposed Procedure Side Surgeon p Gastroscopy with Balloon Dilatation Sheila Velez MD Meds Allergies and Home Medications Allergies Allergy/AdvReac Type Severity Reaction Status Date / Time Penicillins Allergy Severe Anaphylaxis Unverified 11/02/22 13:20 Home Medication Medication Instructions Recorded bupropion HCl 100 mg tablet 100 mg PO TID #90 tabs 10/28/22 escitalopram oxalate 20 mg tablet 20 mg PO DAILY #90 tabs 10/28/22 famotidine 40 mg tablet 40 mg PO QHS #30 tabs 10/28/22 omeprazole 40 mg capsule,delayed 40 mg PO QAM #90 caps 10/28/22 release Current Visit Medications: Current Medications Generic Name Dose Route Start Last Admin Trade Name Freq PRN Reason Stop Dose Admin Ringer's Solution 1,000 mls @ 80 mls/hr 11/04/22 06:00 11/04/22 06:40 IV 12/03/22 23:59 80 mls/hr INFUSION JACLYN Administration IV Miscellaneous Supplies 1 each 11/04/22 06:00 Iv Access IV 12/03/22 23:59 DIRECTED JACLYN Ondansetron HCl 4 mg 11/04/22 06:50 Ondansetron 4 Mg/2 Ml Vial IVP 12/04/22 06:49 Q4H PRN PRN Nausea / Vomiting Sodium Chloride 0 ml 11/04/22 06:00 Normal Saline Flush 10 Ml Syr IV 12/03/22 23:59 PRN PRN Sodium Chloride 0 ml 11/04/22 06:00 Normal Saline 10 Ml Vial IJ 12/03/22 23:59 DIRECTED PRN Sterile Water 0 ml 11/04/22 06:00 Water,Injection,Sterile 10 Ml Vial IJ 12/03/22 23:59 DIRECTED PRN PFSH Active Problems Active Problems: Problem Status Onset Code Difficulty swallowing R13.10 Back pain M54.9 Digestive problems K92.9 Generalized pain R52 GERD (gastroesophageal reflux disease) K21.9 Neck pain M54.2 Thyroid nodule E04.1 Hoang's esophagus determined by endoscopy K22.70 Hiatal hernia K44.9 Nail abnormality L60.9 Depression with anxiety F41.8 Esophagitis determined by biopsy K20.90 Medical History Medical History (Updated 11/04/22 @ 06:48 by Sheila Velez MD) 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 Surgical History Surgical History History of hand surgery Hx of esophagogastroduodenoscopy Tobacco Smoking/Tobacco Use Status: Current every day Tobacco Type: e-cigarettes Second hand exposure: Yes Alcohol Alcohol Intake: current Alcohol intake frequency: a few times a week Alcohol type: hard liquor Substance Use Substance use: Daily Substance use type: marijuana Vital Signs and Lab Results Vital Signs Most Recent Vital Signs in EMR: Most Recent Vital Signs Temp Pulse Resp BP Pulse Ox 36.2 C L 64 16 131/99 H 97 11/04/22 06:25 11/04/22 06:25 11/04/22 06:25 11/04/22 06:25 11/04/22 06:25 Lab Results Blood Type / Crossmatch: No Data to Display Complete Blood Count: No Data to Display Complete Metabolic Panel: No Data to Display Liver Function Panel: No Data to Display Coagulation Panel: No Data to Display Cardiac Panel: No Data to Display Arterial Blood Gas: No Data to Display Venous Blood Gas: No Data to Display Pancreas Panel: No Data to Display Thyroid Panel: No Data to Display Infectious Disease: No Data to Display Blood Cultures: No Data to Display Toxicology Panel: No Data to Display Anesthesia Assessment and Plan Anesthesia History Personal History: No History of Anesthesia Complications Family History: No Family History of Anesthesia Complications Exercise Tolerance Exercise Tolerance: Metabolic Equivalents>4 Pertinent Negatives Pertinent Negatives: No Symptoms of GERD Cardiac & Pulmonary Exam Cardiac Exam: Normal S1/S2 Heart Sounds Pulmonary Exam: Clear Bilateral Breath Sounds Implantable Cardiac Device Does patient have a Pacemaker or an ICD?: No Airway Exam Known Difficult Airway: No Mallampati Class: 2 Mouth Opening: Normal (> 3cm) Thyromental Distance: Greater than 3 cm Neck Range of Motion: Full ROM Neck Circumference: Normal Teeth Condition: Normal Dentition ASA Classification ASA Score: ASA 2 Emergency Case?: No NPO Status NPO Status: NPO Clears >2 hours, Solids >8 hours Anesthesia Plan Resuscitation Status: Full Code Anesthesia Technique: General Anesthesia Airway Planned: Natural Airway Monitors Used: Standard Monitors
[2022-11-04 07:13] VITALS: BMI 28.8
--- NOTE | 2022-11-04 07:37 | ESO_PTH ---
PATIENT: Neto Gallegos LOC: [facility] U#:[id number] AGE/SX: 37/M ROOM: RE11/04/[address]: Sheila Velez MD : 1985 BED: DIS: 11/04/2022 SPEC #: [id number] RECD: 11/04/22 10:41 STATUS: MARILEE REUche #: [id number] KYLER: 11/04/22 07:[address]: Sheila Velez DEPT: Surgical Specimen RECD BY: Tram Allen ENTERED: 11/04/22 10:42 SP TYPE: Eso MICHELE DR: Mateusz Encinas DNP Tissues: 1 - ESOPHAGUS BIOPSY 2 - ESOPHAGUS BIOPSY Procedures: GROSS AND MICRO LEVEL 4 Comments: [id number]
[2022-11-04 07:56] VITALS: BP 126/91; PULSE 89; RESP 16; TEMP 36.9; O2SAT 95
--- NOTE | 2022-11-04 07:57 | W.ANESPOSTOP ---
Postoperative Evaluation Date, Time and Location Date Performed: 11/04/22 Time Performed: 07:57 Patient Location: Day Surgery Unit Vital Signs Most Recent Imported Vital Signs: Most Recent Vital Signs Temp Pulse Resp BP Pulse Ox 36.2 C L 64 16 131/99 H 97 11/04/22 06:25 11/04/22 06:25 11/04/22 06:25 11/04/22 06:25 11/04/22 06:25 Pain Score Most Recent Pain Score: Most Recent Pain Score Pain Level 0 11/04/22 06:25 Assessment Mental Status: Awake (Alert & Oriented to Patient Baseline) Airway and Respiratory Function: Patent airway with normal (patient baseline) respiratory exam Cardiovascular Function: Hemodynamically Stable Hydration Status: Adequately Hydrated Nausea & Vomiting: No Nausea or Vomiting Pain: Pt. Denies Any Pain Peripheral Nerve Block: Patient did not receive a nerve block
[2022-11-04 08:14] VITALS: BP 148/107; PULSE 70; RESP 16; TEMP 36.2; O2SAT 96
[2022-11-04 08:20] VITALS: BP 145/106
[2022-11-04] MEDS: Ondansetron 4 MG/2 ML VIAL IVP (08:28)
[2022-11-04 08:30] VITALS: BP 157/109; PULSE 82; RESP 16; TEMP 36.8
[2022-11-04 08:34] VITALS: BP 147/106; PULSE 78; RESP 16; TEMP 36.7
== END 2022-11-04 09:00 | disposition home or self-care (01) ==
PROVIDERS: PCP Nurse Practitioner Family; Visit Provider Surgery
PROC: 0D758ZZ Dilation of Esophagus, Via Natural or Artificial Opening Endoscopic (ICD-10-PCS; CPT 43249; principal; 2022-11-04 07:30)
DX: K22.2 Esophageal obstruction (principal); K21.9 Gastro-esophageal reflux disease without esophagitis; J35.1 Hypertrophy of tonsils; K22.89 Other specified disease of esophagus
CPT/HCPCS: 43249; 43239; 88305; J2405